=== PATIENT | female | born 1980 | race Caucasian/White ===

== ENCOUNTER 2024-12-16 09:34 | Emergency (ER) | payer MEDICAID, SELFPAY ==
[2024-12-16 09:35] VITALS: BP 138/101; PULSE 115; RESP 18; TEMP 36.8; O2SAT 98; BMI 24.8
--- NOTE | 2024-12-16 09:47 | ED.VIS.GI ---
HPI HPI - GI History of Present Illness Chief Complaint: Flank Pain Detail of Chief Complaint: Left flank pain last night. History of kidney stones. Informant: patient and spouse/S.O. Abdominal Pain/Flank Pain Onset: Today and Yesterday Context: Gradual Onset Timing: Continuous Location: Left Flank Current Severity: Mild Maximum Severity: Moderate Worsened by: Nothing Relieved by: Nothing Nausea/Vomiting/Emesis GI Symptom: Negative for Nausea or Vomiting Diarrhea/Melena/Hematochezia GI Symptom: Positive for Diarrhea Stool Quality: Positive for Loose Severity: Mild Associated Symptoms Associated Symptoms: Positive for Dysuria; Negative for Frequency, Hematuria or Urgency Narrative Narrative: 44-year-old female recently moved to this area has no local physicians. Prior history of kidney stones and urologic stents. Prior and tubal ligation. Patient complaining of left flank pain since last evening. Subjective fever and dysuria. No gross hematuria. Feels like her prior kidney stones. Prior similar symptoms: Yes Recent Illness/Hospitalization: No PFSH PFSH Medical History (Updated 12/16/24 @ 10:[address] Marco A Rivers MD) Kidney stones Allergy/AdvReac Type Severity Reaction Status Date / Time latex Allergy Swelling Verified 12/16/24 09:35 Opioids - Morphine Analogues Allergy Swelling Verified 12/16/24 09:35 povidone-iodine (From Allergy Hives Verified 12/16/24 09:35 Betadine) Social History Smoking Status: Unknown if ever smoked ROS ROS ED ROS Narrative Left flank pain. Diarrhea. Constitutional Constitutional ED: Reports fever(s) and subjective Cardiovascular Cardiovascular: Denies chest pain Respiratory/Chest Respiratory/Chest: Denies cough or dyspnea Gastrointestinal Gastrointestinal: Reports diarrhea; Denies abdominal pain, constipation, melena, nausea or vomiting Genitourinary Genitourinary ED: Reports dysuria; Denies hematuria Musculoskeletal Musculoskeletal: Reports back pain and other Details: Left flank pain. ; Denies arthralgias Integumentary Denies abscess or Abrasions Neurologic Neurologic: Denies headache(s) Psychiatric Psychiatric: Denies anxiety Endocrine Endocrinology: Denies polydipsia Hematologic/Lymphatic Hematologic/Lymphatic: Denies easy bleeding Allergic/Immunologic Allergic/Immunologic ED: Denies mouth swelling, tongue swelling or urticaria EXAM Physical Exam Narrative Exam Narrative: 44-year-old female sitting upright in bed. Vital signs stable afebrile. No acute distress. Significant other with her. H EENT exam pupils round react to light. Moist mucous membranes. Neck nontender no lymphadenopathy. Lungs clear to auscultation bilaterally. Heart tachycardic rate 110 no murmur. Chest wall ribs nontender. Abdomen soft, nontender, nondistended normal bowel sounds without peritoneal signs. No reproducible pain. Back nontender. No CVA tenderness. Well-healed surgical incision from prior thoracic surgery for scoliosis. Moving all 4 extremities. Nontender. Normal strength. Neurologically she is awake alert. Answering questions following commands. No focal motor deficits. Const Vital Signs: 12/16/24 09:35 12/16/24 10:46 Temperature 98.2 F 99.8 F H Temperature Source Oral Oral Pulse Rate 115 H Respiratory Rate 18 Blood Pressure 138/101 H Blood Pressure Mean 113 Pulse Ox 98 Oxygen Delivery Method Room Air Positive well nourished and well developed; Negative for obese, cachectic, contractures or unkempt General Appearance ED: well developed and NAD; Negative for unkempt, cachectic, contractures or pallor Nutritional Appearance: Negative for cachectic or obese HEENT Reports moist mucous membranes normocephalic and atraumatic Eyes PERRL and EOMs intact bilaterally Neck no lymphadenopathy, supple and no JVD Resp normal respiratory effort and clear to auscultation bilaterally Cardio regular rhythm, S1 normal heart sound, S2 normal heart sound and no murmurs; Negative for regular rate Rate: tachycardic GI non-tender, non-distended and no masses Auscultation: normoactive bowel sounds Palpation: soft; Negative for tender, guarding, hernia, mass, pulsatile mass or rebound tenderness present Back/Spine no CVA tenderness Back/Spine Narrative: Well-healed thoracic spine scar from scoliosis and rods. Nontender. General Back: Negative for CVA tenderness Cervical Spine: Negative for cervical spine tenderness Thoracic Spine / Upper Back: Negative for thoracic spinal tenderness Lumbar Spine / Lower Back: Negative for lumbar spinal tenderness Extremity full ROM General Extremety ED: Negative for edema or tenderness General Extremity: Negative for edema Neuro CN's II-XII intact bilaterally and moves all extremities Sensorium / Orientation: alert, oriented to person, oriented to place and oriented to time; Negative for orientation impaired or confused Motor Exam: strength 5/5 throughout Psych mental status grossly normal and thought process normal Appearance: Negative for unkempt Skin no wounds General Skin Exam: Negative for jaundice or pallor Lesions: no lesions Rashes: no rashes Trauma: Negative for abrasion Nails: Negative for discolored MDM MDM MDM Narrative Medical decision making narrative: 44-year-old female left flank pain with a history of prior kidney stones. CAT scan for evaluate for possible kidney stone. Urinalysis to evaluate for possible urinary tract infection. Screening labs. Currently she was offered but did not want a thing for pain or nausea. Repeat exam patient requested something for flank pain should be given IV Toradol. She felt like she was developing a fever I rechecked her oral temperature was 99.8 around 10:45 AM. She also be given p.o. Tylenol. So far her labs are benign. CAT scan shows a left ovarian cyst which will need further evaluation and [facility] referral. History & Record Review Discussion w/independent historian: Patient Additional record(s) reviewed:: No prior records and Other (Patient is from out of state we have no current records on her.) Lab Data Attestation: I reviewed the patient's lab results. Lab results narrative: UA has positive occult blood. Positive ketones. No nitrates. 25-50 white cells. Contaminated with 5-10 epithelial cells. No bacteria. Culture will be sent. Not treated at this time with antibiotics. CBC white count of 13. H&H 12 and 38. Platelets 209. Electrolytes show sodium 131. Gap 15. BUN of 7 creatinine 0.74. Glucose 143. Serum test negative. Labs: Laboratory Results - last 24 hr 12/16/24 12/16/24 09:40 09:55 WBC 13.0 H RBC 4.25 Hgb 12.6 Hct 38.3 MCV 90.1 MCH 29.6 MCHC 32.9 RDW Std Deviation 52.0 H RDW Coeff of Jeb 15.6 H Plt Count 209 MPV 10.7 Immature Gran % (Auto) 0.600 Neut % (Auto) 84.3 H Lymph % (Auto) 5.3 L Holt % (Auto) 4.6 Eos % (Auto) 4.9 Baso % (Auto) 0.3 Absolute Neuts (auto) 10.9 H Absolute Lymphs (auto) 0.69 L Nucleated RBC % 0 Sodium 131 L Potassium 3.4 Chloride 97 L Carbon Dioxide 19.3 L Anion Gap 15 BUN 7 Creatinine 0.74 Estim Creat Clear Calc 71.14 Est GFR (MDRD) Non-Af 103 BUN/Creatinine Ratio 9.2 L Glucose 143 H Calcium 9.4 Serum , Qual NEGATIVE Urine Color Yellow Urine Clarity Sl. Cloudy Urine pH 6.0 Ur Specific [place] 1.015 Urine Protein 30 H Urine Glucose (UA) Normal Urine Ketones 150 A* Urine Occult Blood 150 H Urine Nitrite Negative Urine Bilirubin Negative Urine Urobilinogen Normal Ur Leukocyte Esterase 500 H Urine RBC 0 SEEN Urine WBC 25-50 SEEN Ur Squamous Epith Cells 5-10 SEEN Urine Bacteria 0 SEEN Urine Mucus 0 SEEN Radiography Diagnostic Testing: Clinical Impression(s) from Imaging Studies Abdomen/Pelvis CT 12/16/24 10:15 IMPRESSION: 1. No acute abdominopelvic finding. 2. Several enlarged left ovarian cysts/cystic lesions, incompletely evaluated without IV contrast. Repeat CT pelvis with IV contrast or pelvic ultrasound is recommended for further evaluation if clinically indicated. Reading Location: [facility] Discharge Plan Triage Chief Complaint: Flank Pain ED Provider: Marco A Rivers Dx/Rx/DC Orders Clinical Impression: Acute left flank pain, Cyst of left ovary, History of renal stone Instructions: ED Ovarian Cyst Primary Care Provider: PodChe recio NP Referrals: Liane Guzman MD [Med Staff - Active Staff] - 1 Week PodChe recio NP, [facility] [employer] [facility] [Primary Care Provider] - As Needed Activity Restrictions/Additional Instructions: Motrin and Tylenol for flank pain and any fever. Plenty of fluid and rest. Your CAT scan did not show a kidney stone but it should show left ovarian cysts. Follow-up with [facility] for further evaluation for the left ovarian cyst.. Your urine did not show an infection but showed some white cells. This will be sent for a culture if it shows an infection we will call you and call in an antibiotic. Print Language: Maldivian Disposition Disposition: Home, Self Care
[2024-12-16 10:01] LABS: Absolute Lymphocyte Count 0.69 X10^3/uL (0.83-4.51); Absolute Neutrophil Count 10.9 X10^3/uL (2.0-7.7); Basophil# 0.04 X10^3/uL; Basophil% 0.3 % (0-1); Eosinophil# 0.63 X10^3/uL; Eosinophils% 4.9 % (0-5); Hematocrit 38.3 % (37-47); Hemoglobin 12.6 g/dL (12.0-15.0); Lymphocyte # 0.69 X10^3/ul (0.83-4.51); Lymphocyte % 5.3 % (19-41); Mean Corp Hgb Conc 32.9 g/dL (32-36); Mean Corpuscular Hgb 29.6 pg (27.0-32.0); Mean Corpuscular Volume 90.1 fL (81-99); Mean Platelet Vol. 10.7 fl (6.2-12.0); Monocyte% 4.6 % (0-10); NRBC Flagged by Analyzer 0 % (0-5); Neutrophil # 10.92 X10^3/uL (2.7-7.7); Neutrophil % 84.3 % (47-70); POSITIVE MORPHOLOGY YES; Platelet Count 209 K/mm3 (150-450); RBC Distribution Width CV 15.6 % (11.6-14.6); Red Blood Count 4.25 M/mm3 (4.2-5.4)
[2024-12-16 10:05] LABS: Bacteria 0 SEEN /hpf (None Seen); Mucous, Urine 0 SEEN /hpf (<or=2+); Red Blood Cells-Urine 0 SEEN /hpf (0-5)
[2024-12-16 10:06] LABS: Color, Urine Yellow (Yellow); Glucose, Dipstick Normal (Normal); Leukocyte Esterase-Dipstick 500 /ul (Negative); Nitrite-Dipstick Negative (Negative); Occult Blood-Urine 150 /ul (Negative); Protein-Dipstick 30 mg/dl (Negative); Specific Gravity, Urine 1.015 (1.002-1.030); Urine Bilirubin Dipstick Negative (Negative); Urine Clarity Sl. Cloudy (Clear); Urine Urobilinogen Normal (Normal)
[2024-12-16 10:07] LABS: Ketone-Dipstick 150 mg/dl (Negative)
[2024-12-16 10:09] LABS: Internal QC Validated? YES +Cl - CLEAR BKGD; Pregnancy, Serum, hCG Quali. NEGATIVE Negative; Record Kit Lot#, Serum Preg. 929381
[2024-12-16 10:12] LABS: Squamous Epithelial Cells - UA 5-10 SEEN /hpf (5-10); White Blood Cells 25-50 SEEN /hpf (0-5)
--- NOTE | 2024-12-16 10:15 | CT_ITS ---
PROCEDURE: ABDOMEN/PELVIS WITHOUT CONT 12/16/2024 REASON FOR EXAM: PAIN TECHNIQUE: Abdomen and pelvis CT without intravenous contrast. Noncontrast technique limits evaluation of the abdominal and pelvic viscera. Coronal and Sagittal reconstruction series were provided. One or more dose reduction techniques were used (e.g., Automated exposure control, adjustment of the mA and/or kV according to patient size, use of iterative reconstruction technique). PATIENT PREPARATION: Per protocol ORAL CONTRAST TYPE: None. COMPARISON: None. FINDINGS: Lung bases: Bibasilar atelectasis. The heart is normal in size. Liver: The unopacified liver is normal in size. No biliary ductal dilation. Gallbladder: Probable layering density within the gallbladder. No gallbladder wall thickening or pericholecystic fluid. Spleen: Normal size. Pancreas: Grossly unremarkable. Adrenals: No obvious mass. Kidneys: Several nonobstructing left renal calculi. No hydronephrosis. Bladder: Decompressed with rightward shift of the bladder due to mass effect from the left ovary. Reproductive Organs: Mildly enlarged, fibroid uterus. Several enlarged left ovarian cysts/cystic lesions, incompletely evaluated without IV contrast. Bowel: The stomach is distended. The bowel loops are nondilated. No ascites or pneumoperitoneum. Normal appendix. Lymph nodes: No suspicious lymph node enlargement. Vasculature: The abdominal aorta and IVC contours are normal. Noncontrast technique limits evaluation. Bones: Partially visualized long segment thoracic spinal fixation hardware, with mild rightward curvature of the upper thoracic spine. CT/Abdomen/Pelvis without Cont IMPRESSION: 1. No acute abdominopelvic finding. 2. Several enlarged left ovarian cysts/cystic lesions, incompletely evaluated w ithout IV contrast. Repeat CT pelvis with IV contrast or pelvic ultrasound is recommended for further evaluation if clinical ly indicated. Reading Location: [id number]
[2024-12-16 10:18] LABS: Anion Gap 15 (5-15); BUN 7 mg/dL (4-19); BUN/Creat Ratio 9.2 RATIO (10-20); Calcium,Total 9.4 mg/dL (7.6-11.0); Carbon Dioxide 19.3 mmol/L (21.0-32.0); Chloride 97 mmol/L (98-108); Creatinine, Serum 0.74 mg/dL (0.70-1.20); EST Glomerular Filtration Rate 103 (>60); Estimated Creatinine Clearance 71.14 ml/min (50-250); Glucose 143 mg/dL (70-99); Potassium 3.4 mmol/L (3.3-5.1); Sodium Level 131 mmol/L (133-145)
[2024-12-16 10:22] LABS: Differential Indicated SCAN CRITERIA MET
[2024-12-16 10:46] VITALS: TEMP 37.7
[2024-12-16] MEDS: Acetaminophen 500 MG Tablet 1000 MG PO (10:54)
[2024-12-16] MEDS: Ketorolac 30 MG/ML Syringe IV (10:54)
[2024-12-16 10:57] VITALS: BP 130/98; PULSE 107; RESP 18; TEMP 37.7; O2SAT 99
== END 2024-12-16 10:59 | disposition home or self-care (01) ==
PROVIDERS: Emergency Provider Emergency Medicine; PCP Nurse Practitioner Primary Care; Visit Provider Emergency Medicine
DX: R10.9 Unspecified abdominal pain (principal); N83.202 Unspecified ovarian cyst, left side; R19.7 Diarrhea, unspecified; R30.0 Dysuria; M54.9 Dorsalgia, unspecified; Z87.442 Personal history of urinary calculi
CPT/HCPCS: 74176; 80048; 81001; 84703; 85025; 87086; 87088; 87186; 96374; 99283; A4216

== ENCOUNTER 2024-12-18 10:03 | Observation (INO) | payer MEDICAID, SELFPAY ==
[2024-12-18] VITALS (11 sets, daily range): BP systolic 110–148; BP diastolic 64–97; PULSE 90–114; RESP 16–20; TEMP 36.8–37.6; O2SAT 96–100; BMI 24.2
--- NOTE | 2024-12-18 10:22 | EX.ED.DYSGE1 ---
HPI <RUY Daley - Last Filed: 12/18/24 12:21> History of Present Illness Chief Complaint: General Illness Narrative Narrative: Patient is a 44-year-old female who recently moved to the area, patient was seen on December 16, 2024. Patient was seen here for similar complaints, some flank pain, nausea vomiting diarrhea. Patient did feel improved when she was here upon discharge. Patient received basic laboratory values, CT scan of the abdomen pelvis out contrast. Patient did have some left-sided ovarian cyst however no acute stones. Patient did receive a urine culture which I did check and did presumptively have E. coli. Patient states he is continue to have fevers, some abdominal pain, nausea and vomiting. Here for reevaluation [facility] <RUY Daley - Last Filed: 12/18/24 12:21> [facility] Medical History (Updated 12/18/24 @ 11:[address] Raul Ness MD) Kidney stones Home Medications ?Medication ?Instructions ?Recorded ?Last Taken ?Type NK 12/18/24 Unknown History Allergy/AdvReac Type Severity Reaction Status Date / Time latex Allergy Swelling Verified 12/16/24 09:35 Opioids - Morphine Analogues Allergy Swelling Verified 12/16/24 09:35 povidone-iodine (From Allergy Hives Verified 12/16/24 09:35 Betadine) Social History Smoking Status: Unknown if ever smoked ROS <RUY Daley - Last Filed: 12/18/24 12:21> ROS ED ROS Narrative Constitutional: Negative for weight loss. Positive fever, weakness, chills Eyes: Negative for vision loss, vision change, double vision ENT: Negative for any sore throat, ear pain, congestion Cardiovascular: Negative for any chest pain, tightness, palpitations Respiratory: Negative for any cough, sputum production, hemoptysis, dyspnea, dyspnea on exertion, orthopnea Gastrointestinal: Negative for any constipation, blood in stool, blood in vomit. Positive for abdominal pain, nausea vomiting diarrhea : Negative for any urinary frequency, dysuria, retention, blood in urine. Decreased urine output Muscle skeletal: Negative for any neck pain, back pain Neurological: Negative for any headache, syncope, dizziness Skin: Negative for any rashes, itching, abrasions, lacerations Psychiatric: Negative for any depression, anxiety, stress, suicidal ideation, homicidal ideation Hematologic: Negative for any excessive bruising, easy bleeding EXAM <RUY Daley - Last Filed: 12/18/24 12:21> Physical Exam Narrative Exam Narrative: Vital signs reviewed. On my reevaluation, the patient's oral temp was 100.4. HEET: Head normocephalic atraumatic, TMs clear bilaterally. Posterior pharynx is clear, dry mucous membranes. Nares clear bilaterally. Neck: Supple with no lymphadenopathy or tenderness. No signs of meningismus. Cardiac: Regular rate and rhythm no murmurs gallops or rubs, equal peripheral pulses bilaterally. Respiratory: Lungs clear to auscultation bilaterally. No chest tenderness. Abdomen: Soft, nontender, nondistended. No abdominal bruit or pulsatile masses. No hepatosplenomegaly Extremities: No peripheral edema, no signs of gross trauma or deformity. Active full range of motion of all extremities. Neuro: Cranial nerves II through XII intact, no focal neurological deficits. Skin: Clean dry and intact with no rash, purpura, petechiae, vesicles or pustules. Backs/flank: No CVA tenderness, no midline spinal tenderness, no deformity. Psych: Normal mood and affect. No SI, HI or acute psychosis. Const Vital Signs: 12/18/24 10:04 12/18/24 10:07 12/18/24 10:47 Temperature 99.7 F H 99.7 F H Temperature Source Oral Oral Pulse Rate 114 H 114 H Respiratory Rate 20 H 20 H Respiratory Effort Normal Non-Labored Respiratory Pattern Irregular Blood Pressure 115/84 H 115/84 H Blood Pressure Mean 94 94 Pulse Ox 100 100 Oxygen Delivery Method Room Air Room Air 12/18/24 11:07 Temperature 99.4 F H Temperature Source Oral Pulse Rate 102 H Respiratory Rate 16 Respiratory Effort Respiratory Pattern Blood Pressure 110/64 Blood Pressure Mean 79 Pulse Ox 98 Oxygen Delivery Method Room Air Positive well nourished and well developed General Appearance ED: well developed <Dr. Raul Ness MD - Last Filed: 12/18/24 12:35> Physical Exam Const Vital Signs: 12/18/24 10:04 12/18/24 10:07 12/18/24 10:47 Temperature 99.7 F H 99.7 F H Temperature Source Oral Oral Pulse Rate 114 H 114 H Respiratory Rate 20 H 20 H Respiratory Effort Normal Non-Labored Respiratory Pattern Irregular Blood Pressure 115/84 H 115/84 H Blood Pressure Mean 94 94 Pulse Ox 100 100 Oxygen Delivery Method Room Air Room Air 12/18/24 11:07 Temperature 99.4 F H Temperature Source Oral Pulse Rate 102 H Respiratory Rate 16 Respiratory Effort Respiratory Pattern Blood Pressure 110/64 Blood Pressure Mean 79 Pulse Ox 98 Oxygen Delivery Method Room Air [facility] <RUY Daley - Last Filed: 12/18/24 12:21> [facility] Lab Data Labs: Laboratory Results - last 24 hr 12/18/24 10:40 WBC 16.9 H RBC 4.31 Hgb 12.8 Hct 38.0 MCV 88.2 MCH 29.7 MCHC 33.7 RDW Std Deviation 51.9 H RDW Coeff of Jeb 16.0 H Plt Count 218 MPV 10.9 Immature Gran % (Auto) 0.500 Neut % (Auto) 82.4 H Lymph % (Auto) 6.8 L [place] % (Auto) 9.9 Eos % (Auto) 0.1 Baso % (Auto) 0.3 Absolute Neuts (auto) 13.9 H Absolute Lymphs (auto) 1.15 Nucleated RBC % 0 Diff Path Review May foll Platelet Estimate A Polychromasia 1+ Sodium 133 Potassium 4.4 Chloride 99 Carbon Dioxide 19.7 L Anion Gap 14 BUN 7 Creatinine 0.72 Estim Creat Clear Calc 73.11 Est GFR (MDRD) Non-Af 108 BUN/Creatinine Ratio 9.7 L Glucose 114 H Lactic Acid 1.7 Calcium 9.5 Total Bilirubin 0.29 Direct Bilirubin < 0.08 AST 40 H ALT 21 Alkaline Phosphatase 105 H Total Protein 7.7 Albumin 3.7 Globulin 4.0 Lipase 14 Urine Color Yellow Urine Clarity Sl. Cloudy Urine pH 7.0 Ur Specific [place] 1.010 Urine Protein 30 H Urine Glucose (UA) Normal Urine Ketones Negative Urine Occult Blood 150 H Urine Nitrite Negative Urine Bilirubin Negative Urine Urobilinogen 1 H Ur Leukocyte Esterase 500 H Urine RBC 0-5 SEEN Urine WBC 25-50 SEEN Ur Squamous Epith Cells 0-5 SEEN Urine Bacteria 2+ Urine Mucus 0 SEEN Treatment and Re-Evaluation :: Differential diagnosis includes however is not limited to: Obstructive uropathy, pelvic abscess, dehydration, leukocytosis, electrolyte abnormality, pyelonephritis, UTI Patient does appear that she does not feel well. Patient did have a oral temp of 100.4 here on my examination. I did look at the patient's past visit on December 16, 2024. Patient did have some bacteria in the urine that was sent for culture which did show E. coli. Patient had a white blood cell count of 13, CT scan of the abdomen pelvis without contrast showed ovarian cyst/lesions, no obstructing uropathy. Patient will receive basic laboratory values including a lactic acid, urinalysis. Patient received IV Toradol, Zofran as well as IV Rocephin. Patient's CBC shows a leukocytosis with a white blood count of 16.9. This is elevated from a couple days ago that was 13. Patient's chemistries were unremarkable, lipase was negative. Patient's COVID-19 influenza was unremarkable. Patient's urinalysis does show 2+ bacteria 25-50 white blood cells, 500 leukocyte Estrace, occult blood 150. Patient urine sent for culture. Patient was started IV Rocephin which is sensitive to the culture from the previous. Patient is sweating on my reevaluation, this is likely from her fever breaking. Patient be admitted to the hospital. All questions answered, stable for discharge. <Dr. Raul Ness MD - Last Filed: 12/18/24 12:35> [facility] Narrative Medical decision making narrative: I have personally performed a face to face assessment of the patient and have reviewed the DORIS Note. I performed a substantive portion of the visit including all aspects of the following. My coffey findings include: History is remarkable for diarrhea, nausea, lack of appetite, dysuria and frequency. Symptoms started Tuesday. She was recently seen by Dr. Rivers on December 16. She was noted to have pyuria without bacteria. Urine culture was sent. Urine culture is positive for presumptive E. coli. Patient states she has no appetite. She states her abdomen hurts because she has not eaten in several days. She does endorse left flank pain. Exam is vitals are marked for tachycardia and elevated temperature to 99.7. She appears ill and pale. HEENT is remarkable dry mucosa. Lungs are clear to auscultation. Heart is rapid and regular. Abdomen is soft with question of some mild tenderness. There is no guarding or peritoneal findings. She does have left CVA tenderness noted. There are no dermatologic lesions noted. There is no evidence of trauma. Alert orient x 3. Moves all extremities. Medical Decision Making differential diagnosis would include pyelonephritis, history is not consistent with obstructing stone, she was noted to have ovarian cyst and probably the cause of her abdominal pain. Patient was treated with ketorolac for her pain, Zofran for her nausea and ceftriaxone for presumed E. coli noted on urine culture. Patient does not appear well. Most likely she will require admission. Other additions or changes: With patient having nausea and vomiting and unable to keep fluids down and she was admitted. Lab Data Labs: Laboratory Results - last 24 hr 12/18/24 10:40 WBC 16.9 H RBC 4.31 Hgb 12.8 Hct 38.0 MCV 88.2 MCH 29.7 MCHC 33.7 RDW Std Deviation 51.9 H RDW Coeff of Jeb 16.0 H Plt Count 218 MPV 10.9 Immature Gran % (Auto) 0.500 Neut % (Auto) 82.4 H Lymph % (Auto) 6.8 L [place] % (Auto) 9.9 Eos % (Auto) 0.1 Baso % (Auto) 0.3 Absolute Neuts (auto) 13.9 H Absolute Lymphs (auto) 1.15 Nucleated RBC % 0 Diff Path Review May foll Platelet Estimate A Polychromasia 1+ Sodium 133 Potassium 4.4 Chloride 99 Carbon Dioxide 19.7 L Anion Gap 14 BUN 7 Creatinine 0.72 Estim Creat Clear Calc 73.11 Est GFR (MDRD) Non-Af 108 BUN/Creatinine Ratio 9.7 L Glucose 114 H Lactic Acid 1.7 Calcium 9.5 Total Bilirubin 0.29 Direct Bilirubin < 0.08 AST 40 H ALT 21 Alkaline Phosphatase 105 H Total Protein 7.7 Albumin 3.7 Globulin 4.0 Lipase 14 Urine Color Yellow Urine Clarity Sl. Cloudy Urine pH 7.0 Ur Specific [place] 1.010 Urine Protein 30 H Urine Glucose (UA) Normal Urine Ketones Negative Urine Occult Blood 150 H Urine Nitrite Negative Urine Bilirubin Negative Urine Urobilinogen 1 H Ur Leukocyte Esterase 500 H Urine RBC 0-5 SEEN Urine WBC 25-50 SEEN Ur Squamous Epith Cells 0-5 SEEN Urine Bacteria 2+ Urine Mucus 0 SEEN Management Discussion w/another healthcare provider: Hospitalist (Spoke with hospitalist. Full admit MedSurg hospitalist made aware of recent presentation to ER, laboratory results and reason for admission) Discharge Plan Triage Chief Complaint: General Illness ED Midlevel Provider: Blake Anders ED Provider: Raul Ness Dx/Rx/DC Orders Clinical Impression: Pyelonephritis of left kidney, Cyst of left ovary, Sinus tachycardia, Nausea, vomiting and diarrhea Prescriptions: No Action NK Primary Care Provider: Che Adkins NP Referrals: Che Adkins NP, [facility] [Primary Care Provider] - Print Language: Setswana Disposition Disposition: Acute Care Hospital [facility]
[2024-12-18] MEDS: Ondansetron 4 MG/2 ML Vial IV ×2 (10:38→19:29)
[2024-12-18] MEDS: Ketorolac 15 MG/ML Vial IV (10:38)
[2024-12-18] MEDS: 0.9% Normal Saline (1000mL) 1,000 ML 999 ML IV (10:38)
[2024-12-18] MEDS: Ceftriaxone 1 GM/50 ML BAG IV (10:45)
[2024-12-18 10:52] LABS: Mucous, Urine 0 SEEN /hpf (<or=2+)
[2024-12-18 10:58] LABS: Absolute Lymphocyte Count 1.15 X10^3/uL (0.83-4.51); Absolute Neutrophil Count 13.9 X10^3/uL (2.0-7.7); Basophil# 0.05 X10^3/uL; Basophil% 0.3 % (0-1); Eosinophil# 0.01 X10^3/uL; Eosinophils% 0.1 % (0-5); Hemoglobin 12.8 g/dL (12.0-15.0); Lymphocyte # 1.15 X10^3/ul (0.83-4.51); Lymphocyte % 6.8 % (19-41); Mean Corp Hgb Conc 33.7 g/dL (32-36); Mean Corpuscular Hgb 29.7 pg (27.0-32.0); Mean Corpuscular Volume 88.2 fL (81-99); Mean Platelet Vol. 10.9 fl (6.2-12.0); Monocyte# 1.67 X10^3/uL; Monocyte% 9.9 % (0-10); NRBC Flagged by Analyzer 0 % (0-5); Neutrophil # 13.91 X10^3/uL (2.7-7.7); Neutrophil % 82.4 % (47-70); POSITIVE DIFFERENTIAL YES; Platelet Count 218 K/mm3 (150-450); RBC Distribution Width SD 51.9 fl (35.1-43.9); Red Blood Count 4.31 M/mm3 (4.2-5.4); White Blood Count 16.9 K/mm3 (4.4-11.0)
[2024-12-18 11:00] LABS: Color, Urine Yellow (Yellow); Glucose, Dipstick Normal (Normal); Ketone-Dipstick Negative (Negative); Leukocyte Esterase-Dipstick 500 /ul (Negative); Nitrite-Dipstick Negative (Negative); Occult Blood-Urine 150 /ul (Negative); Protein-Dipstick 30 mg/dl (Negative); Urine Bilirubin Dipstick Negative (Negative); Urine Clarity Sl. Cloudy (Clear); Urine Urobilinogen 1 mg/dl (Normal)
[2024-12-18 11:03] LABS: Differential Indicated SCAN CRITERIA MET
[2024-12-18 11:11] LABS: Bacteria 2+ /hpf (None Seen); Red Blood Cells-Urine 0-5 SEEN /hpf (0-5); Squamous Epithelial Cells - UA 0-5 SEEN /hpf (5-10); White Blood Cells 25-50 SEEN /hpf (0-5)
[2024-12-18] MEDS: Acetaminophen 500 MG Tablet 1000 MG PO (11:21)
[2024-12-18 11:47] LABS: Platelet Estimate A (ADEQ); Polychromasia 1+
[2024-12-18 11:58] LABS: Lactic Acid 1.7 mmol/L (0.0-2.0)
[2024-12-18 12:00] LABS: AST(SGOT) 40 U/L (<=31); Alanine Aminotransfer ALT/SGPT 21 U/L (<=34); Albumin, Serum 3.7 g/dL (3.5-5.0); Alkaline Phosphatase 105 U/L (35-104); Anion Gap 14 (5-15); BUN 7 mg/dL (4-19); BUN/Creat Ratio 9.7 RATIO (10-20); Bilirubin, Direct < 0.08 mg/dL (0.00-0.30); Calcium,Total 9.5 mg/dL (7.6-11.0); Carbon Dioxide 19.7 mmol/L (21.0-32.0); Chloride 99 mmol/L (98-108); Creatinine, Serum 0.72 mg/dL (0.70-1.20); EST Glomerular Filtration Rate 108 (>60); Estimated Creatinine Clearance 73.11 ml/min (50-250); Glucose 114 mg/dL (70-99); Lipase 14 U/L (13-75); Potassium 4.4 mmol/L (3.3-5.1); Protein, Total 7.7 g/dL (5.9-8.4); Sodium Level 133 mmol/L (133-145); Total Bilirubin 0.29 mg/dL (0.00-1.30)
--- NOTE | 2024-12-18 12:08 | PCM.HP.STD ---
HPI - General General Date of Admission: 12/18/24 Date of Service: 12/18/24 Chief Complaint: Left flank pain HPI Narrative MOHSEN MOSS, is a 44 F in relatively good health with no chronic medical comorbidities who presented with left flank pain. Per patient she was in her usual state of health 4 days prior to her admission when she developed left flank pain as well as subjective fever and chills. She was seen in the emergency department 2 days prior to admission and discharged home. Patient symptoms did not improve came back to the ED distad with significant left flank pain with associated subjective fever and chills. She had nausea vomiting as well as diarrhea. Workup did reveal acute pyelonephritis antibiotics initiated per protocol admitted to regular nursing floor for further management [facility] Medical History (Updated 12/18/24 @ 11:[address] Raul Ness MD) Kidney stones Home Medications ?Medication ?Instructions ?Recorded ?Last Taken ?Type NK 12/18/24 Unknown History Allergy/AdvReac Type Severity Reaction Status Date / Time latex Allergy Swelling Verified 12/16/24 09:35 Opioids - Morphine Analogues Allergy Swelling Verified 12/16/24 09:35 povidone-iodine (From Allergy Hives Verified 12/16/24 09:35 Betadine) Social History Smoking Status: Unknown if ever smoked ROS ROS Narrative GENERAL: denies fever, chills, night sweats, weight loss, anorexia HEENT: denies headache, sinus congestion, or drainage, dysphagia RESPIRATORY: denies cough, sputum production, shortness of breath, dyspnea on exertion CARDIAC: denies chest pain, palpitations, orthopnea, PND GASTROINTESTINAL: , nausea, vomiting, melena, GENITOURINARY: dysuria, left flank pain EXTREMITY: denies swelling MUSCULOSKELETAL: denies current joint pain or tenderness NEUROLOGIC: denies focal numbness, weakness, tingling HEMATOLOGIC: denies easy bruising and/or hemorrhage INTEGUMENT: denies rashes PSYCHIATRIC: denies suicidal or homicidal ideation Vital Signs Vital Signs Vital Signs: 12/18/24 10:04 12/18/24 10:07 12/18/24 10:47 Temperature 99.7 F H 99.7 F H Temperature Source Oral Oral Pulse Rate 114 H 114 H Respiratory Rate 20 H 20 H Respiratory Effort Normal Non-Labored Respiratory Pattern Irregular Blood Pressure 115/84 H 115/84 H Blood Pressure Mean 94 94 Pulse Ox 100 100 Oxygen Delivery Method Room Air Room Air 12/18/24 11:07 Temperature 99.4 F H Temperature Source Oral Pulse Rate 102 H Respiratory Rate 16 Respiratory Effort Respiratory Pattern Blood Pressure 110/64 Blood Pressure Mean 79 Pulse Ox 98 Oxygen Delivery Method Room Air Weight Weight: 50.712 kg Body Mass Index (BMI) 24.2 Physical Exam Narrative GENERAL: cooperative HEENT: Atraumatic; normocephalic EYES; Anicteric, Normal Conjunctiva NECK; supple, normal thyroid, RESPIRATORY: Diminished to auscultation CARDIOVASCULAR: Regular S1 S2, GI: soft, normoactive bowel sounds, : Renal angle tenderness; EXTREMITIES: No edema, no clubbing, MUSCULOSKELETAL: no muscle wasting NEURO: Awake; no lateralizing signs. SKIN: No Rash PSYCH; Flat affect Results Lab / Micro Data 12/18/24 10:40 12/18/24 10:40 Labs: Laboratory Results - last 24 hr 12/18/24 10:40: WBC 16.9 H, RBC 4.31, Hgb 12.8, Hct 38.0, MCV 88.2, MCH 29.7, MCHC 33.7, RDW Std Deviation 51.9 H, RDW Coeff of Jeb 16.0 H, Plt Count 218, MPV 10.9, Immature Gran % (Auto) 0.500, Neut % (Auto) 82.4 H, Lymph % (Auto) 6.8 L, Person % (Auto) 9.9, Eos % (Auto) 0.1, Baso % (Auto) 0.3, Absolute Neuts (auto) 13.9 H, Absolute Lymphs (auto) 1.15, Nucleated RBC % 0, Diff Path Review January, Platelet Estimate A, Polychromasia 1+, Sodium 133, Potassium 4.4, Chloride 99, Carbon Dioxide 19.7 L, Anion Gap 14, BUN 7, Creatinine 0.72, Estim Creat Clear Calc 73.11, Est GFR (MDRD) Non-Af 108, BUN/Creatinine Ratio 9.7 L, Glucose 114 H, Lactic Acid 1.7, Calcium 9.5, Total Bilirubin 0.29, Direct Bilirubin < 0.08, AST 40 H, ALT 21, Alkaline Phosphatase 105 H, Total Protein 7.7, Albumin 3.7, Globulin 4.0, Lipase 14, Urine Color Yellow, Urine Clarity Sl. Cloudy, Urine pH 7.0, Ur Specific [place] 1.010, Urine Protein 30 H, Urine Glucose (UA) Normal, Urine Ketones Negative, Urine Occult Blood 150 H, Urine Nitrite Negative, Urine Bilirubin Negative, Urine Urobilinogen 1 H, Ur Leukocyte Esterase 500 H, Urine RBC 0-5 SEEN, Urine WBC 25-50 SEEN, Ur Squamous Epith Cells 0-5 SEEN, Urine Bacteria 2+, Urine Mucus 0 SEEN Micro: Microbiology 12/18/24 10:40 Mucosa - Nose SARS-CoV-2, Influenza & RSV (PCR) - Final Assessment & Plan Assessment/Plan (1) Pyelonephritis of left kidney: PLAN: Plan Patient is a 44-year-old female presenting with left flank pain 1. Sepsis syndrome next without endorgan dysfunction ? Secondary to acute pyelonephritis treatment initiated from the ED with IV fluid resuscitation, broad-spectrum antibiotic therapy as well as IV fluids. Initial lactic acid levels came back at 1.7 2. Acute pyelonephritis ? Patient did fail outpatient treatment cultures previously obtained came back positive for E. coli sensitivities reviewed. Patient started on ceftriaxone admitted to regular nursing floor for symptom management 3. Acute gastroenteritis ? Suspected to be viral gastroenteritis plan is to treat symptomatically 4. DVT prophylaxis ? Low risk to encourage ambulation Time spent in the patient's overall evaluation,decision-making process, review of diagnostic data, adjustment of management, discussion with other providers, nursing nursing and ancillary staff involved in patient's care documentation, 55 Minutes Charges/Coding Visit Charges Inpatient E&M: 93309 Init Hosp L2
--- NOTE | 2024-12-18 14:09 | CASEMGMT ---
Care Management Face to Face with patient for initial transition planning/care coordination assessment in the ED. This justowriter operator introduced self and role at [facility]. Patient alert and oriented. Patient willing to participate in assessment and is able to answer all questions appropriately. Care providers, pharmacy, and demographics verified. Admitting Diagnosis: Pyelonephritis of left kidney Other diagnosis history: kidney stones PCP: Che Adkins PRODUCT SAFETY PROFESSIONAL Specialists: none [facility]erred [facility]acy: [facility] Insurance: [employer] Prescription Benefit: yes Living Will/HPOA: none and denies needing information LNOK: mother, Ghazala. Living Arrangements: lives with significant other, Jose, in a trailer with 3 steps to enter. Independent at baseline with all ADLs/IADLs Transportation: patient drives DME: none HHC: none SNF/Rehab: none Community Resources: none Behavioral Health History: denies Patient goals: Patient wishes to discharge home, denies need for home health care at this time. Patient denies any further needs or concerns at this time. Disposition Plan: admission to acute; RN CM/SW to follow for discharge planning needs that may arise. Autumn Godoy, ATOMIC PHYSICS PROFESSOR, BUSINESS DEVELOPMENT ASSISTANT
[2024-12-18] MEDS: Lactated Ringers 1,000 ML 150 ML IV ×2 (15:26→21:40)
[2024-12-18] MEDS: Acetaminophen 325 MG Tablet 650 MG PO (19:30)
[2024-12-19] MEDS: Acetaminophen 325 MG Tablet 650 MG PO ×2 (03:00→20:14)
[2024-12-19] MEDS: Ondansetron 4 MG/2 ML Vial IV ×4 (03:00→17:34)
[2024-12-19 03:10] VITALS: BP 117/78; PULSE 99; RESP 16; TEMP 37.6; O2SAT 100
[2024-12-19] MEDS: Lactated Ringers 1,000 ML 150 ML IV (04:16)
[2024-12-19 06:00] VITALS: BMI 25.1
[2024-12-19 07:19] LABS: Absolute Lymphocyte Count 1.24 X10^3/uL (0.83-4.51); Absolute Neutrophil Count 8.8 X10^3/uL (2.0-7.7); Basophil# 0.02 X10^3/uL; Basophil% 0.2 % (0-1); Eosinophil# 0.06 X10^3/uL; Eosinophils% 0.5 % (0-5); Hematocrit 28.4 % (37-47); Hemoglobin 9.7 g/dL (12.0-15.0); Lymphocyte # 1.24 X10^3/ul (0.83-4.51); Lymphocyte % 10.7 % (19-41); Mean Corp Hgb Conc 34.2 g/dL (32-36); Mean Corpuscular Hgb 29.6 pg (27.0-32.0); Mean Corpuscular Volume 86.6 fL (81-99); Mean Platelet Vol. 10.7 fl (6.2-12.0); Monocyte# 1.46 X10^3/uL; Monocyte% 12.6 % (0-10); NRBC Flagged by Analyzer 0 % (0-5); Neutrophil # 8.78 X10^3/uL (2.7-7.7); Neutrophil % 75.5 % (47-70); Platelet Count 232 K/mm3 (150-450); RBC Distribution Width CV 16.1 % (11.6-14.6); Red Blood Count 3.28 M/mm3 (4.2-5.4); White Blood Count 11.6 K/mm3 (4.4-11.0)
--- NOTE | 2024-12-19 07:44 | PN.HOSP_ITS ---
Reason for Visit Reason for Visit: Diagnoses Tubulo-interstitial nephritis, not specified as acute or chronic (12/18/24) Subjective Subjective Patient admitted with left pyelonephritis started on antibiotics per protocol admitted to regular nursing floor for further management. Seen this a.m. patient reports being able to hold food down with no nausea and vomiting. She still continues to spike fevers Objective Data Objective Data Vital Signs: Vital Signs Temp Pulse Resp BP Pulse Ox O2 Del Method 99.7 F H 99 16 117/78 100 Room Air 12/19/24 03:10 12/19/24 03:10 12/19/24 03:10 12/19/24 03:10 12/19/24 03:10 12/19/24 03:10 Oxygen Delivery Method Room Air Weight: 52.617 kg Body Mass Index (BMI) 25.1 Intake & Output: Intake and Output for Last 24 Hours 12/17/24 12/18/24 12/19/24 23:59 23:59 23:59 Intake Total 2335 / 2335 990 / 990 Balance 2335 / 2335 990 / 990 Medical Nutrition Assessment Dietitian: Malnutrition Criteria Met Start: 12/18/24 17:28 Freq: Status: Active Protocol: Document 12/18/24 17:30 RMA (Rec: 12/18/24 17:30 RMA [email or web address]) Nutrition Malnutrition Evidence of Yes Malnutrition Exists Malnutrition (severe Acute Illness/Injury ): Evidenced By Suboptimal Energy Intake (Severe),Weight Loss (Severe) Clinical Problem Acute Disease or Injury Related Malnutrition Etiology severe protein-calorie malnutrition in the context of acute illness related to inadequate oral intake and altered GI function; N/V/D Signs/Symptoms as evidenced by ~7% unintentional weight loss x 1 week and PO meeting less than 50% estimated nutrition needs x 1 week Status Active Problem Recommendation Dietitian Will continue regular diet and encourage PO as Recommendations/ tolerated. Changes Will d/c ensure plus HP with medpass. Will order 240mL vanilla ensure plus HP w/ breakfast and dinner tray. Monitor weight and PO as established; adjust ONS as needed. Lab / Micro Data 12/19/24 06:45 12/19/24 06:45 Labs: Laboratory Results - last 24 hr 12/18/24 10:40: WBC 16.9 H, RBC 4.31, Hgb 12.8, Hct 38.0, MCV 88.2, MCH 29.7, MCHC 33.7, RDW Std Deviation 51.9 H, RDW Coeff of Jeb 16.0 H, Plt Count 218, MPV 10.9, Immature Gran % (Auto) 0.500, Neut % (Auto) 82.4 H, Lymph % (Auto) 6.8 L, [place] % (Auto) 9.9, Eos % (Auto) 0.1, Baso % (Auto) 0.3, Absolute Neuts (auto) 13.9 H, Absolute Lymphs (auto) 1.15, Nucleated RBC % 0, Diff Path Review January, Platelet Estimate A, Polychromasia 1+, Sodium 133, Potassium 4.4, Chloride 99, Carbon Dioxide 19.7 L, Anion Gap 14, BUN 7, Creatinine 0.72, Estim Creat Clear Calc 73.11, Est GFR (MDRD) Non-Af 108, BUN/Creatinine Ratio 9.7 L, Glucose 114 H, Lactic Acid 1.7, Calcium 9.5, Total Bilirubin 0.29, Direct Bilirubin < 0.08, AST 40 H, ALT 21, Alkaline Phosphatase 105 H, Total Protein 7.7, Albumin 3.7, Globulin 4.0, Lipase 14, Urine Color Yellow, Urine Clarity Sl. Cloudy, Urine pH 7.0, Ur Specific [place] 1.010, Urine Protein 30 H, Urine Glucose (UA) Normal, Urine Ketones Negative, Urine Occult Blood 150 H, Urine Nitrite Negative, Urine Bilirubin Negative, Urine Urobilinogen 1 H, Ur Leukocyte Esterase 500 H, Urine RBC 0-5 SEEN, Urine WBC 25-50 SEEN, Ur Squamous Epith Cells 0-5 SEEN, Urine Bacteria 2+, Urine Mucus 0 SEEN 12/19/24 06:45: WBC 11.6 H, RBC 3.28 L, Hgb 9.7 L, Hct 28.4 L, MCV 86.6, MCH 29.6, MCHC 34.2, RDW Std Deviation 51.0 H, RDW Coeff of Jeb 16.1 H, Plt Count 232, MPV 10.7, Immature Gran % (Auto) 0.500, Neut % (Auto) 75.5 H, Lymph % (Auto) 10.7 L, [place] % (Auto) 12.6 H, Eos % (Auto) 0.5, Baso % (Auto) 0.2, A bsolute Neuts (auto) 8.8 H, Absolute Lymphs (auto) 1.24, Nucleated RBC % 0 Micro: Microbiology 12/18/24 10:40 Mucosa - Nose SARS-CoV-2, Influenza & RSV (PCR) - Final Physical Exam Narrative GENERAL: cooperative HEENT: Atraumatic; normocephalic EYES; Anicteric, Normal Conjunctiva NECK; supple, normal thyroid, RESPIRATORY: Diminished to auscultation CARDIOVASCULAR: Regular S1 S2, GI: soft, normoactive bowel sounds, : Renal angle tenderness; EXTREMITIES: No edema, no clubbing, MUSCULOSKELETAL: no muscle wasting NEURO: Awake; no lateralizing signs. SKIN: No Rash PSYCH; Flat affect Assessment & Plan Assessment/Plan (1) Pyelonephritis of left kidney: PLAN: Plan Patient is a 44-year-old female presenting with left flank pain 1. Sepsis syndrome next without endorgan dysfunction ? Secondary to acute pyelonephritis treatment initiated from the ED with IV fluid resuscitation, broad-spectrum antibiotic therapy as well as IV fluids. Initial lactic acid levels came back at 1.7 2. Acute pyelonephritis with E. coli ? Patient did fail outpatient treatment cultures previously obtained came back positive for E. coli sensitivities reviewed. Patient started on ceftriaxone admitted to regular nursing floor for symptom management ?; patient continues to spike fevers we will continue with current antibiotic treatment regimen 3. Acute gastroenteritis ? Suspected to be viral gastroenteritis plan is to treat symptomatically 4. Anemia ? Secondary to chronic disorder monitoring H&H and transfuse if patient becomes symptomatic or hemoglobin falls below 7. Also ordered iron studies as well as B12 levels 5. Hypokalemia ? Corrected per protocol repeat labs ordered in a.m. for subsequent eval 6. Hypomagnesemia ? Corrected per protocol repeat labs ordered in a.m. for subsequent monitoring 7. DVT prophylaxis ? Low risk to encourage ambulation Charges/Coding Visit Charges Inpatient E&M: 18045 [facility] Hosp L3
[2024-12-19 07:53] LABS: Magnesium 1.5 mg/dL (1.5-2.2); Phosphorus 2.2 mg/dL (2.7-4.5)
[2024-12-19 07:54] LABS: Anion Gap 9 (5-15); BUN 6 mg/dL (4-19); BUN/Creat Ratio 11.5 RATIO (10-20); Calcium,Total 8.4 mg/dL (7.6-11.0); Carbon Dioxide 21.9 mmol/L (21.0-32.0); Chloride 107 mmol/L (98-108); Creatinine, Serum 0.49 mg/dL (0.70-1.20); EST Glomerular Filtration Rate 120 (>60); Estimated Creatinine Clearance 107.43 ml/min (50-250); Glucose 98 mg/dL (70-99); Potassium 3.2 mmol/L (3.3-5.1); Sodium Level 137 mmol/L (133-145)
[2024-12-19 07:57] VITALS: O2SAT 95
[2024-12-19 09:00] VITALS: BP 122/75; PULSE 96; RESP 16; TEMP 37.4; O2SAT 98
[2024-12-19] MEDS: Pantoprazole Sodium 40 MG Tablet PO (10:23)
[2024-12-19] MEDS: Ceftriaxone 1 GM/50 ML BAG IV (10:23)
[2024-12-19] MEDS: Na Biphos/Potassium Phosphate PACKET 1 PACKET PO ×2 (10:33→20:14)
[2024-12-19 12:24] LABS: Ferritin 109 ng/mL (22-378); Iron < 6 ug/dL (50-170); Iron Binding Capacity,Unsat 171 ug/dL (228-428); Vitamin B12 > 4000 pg/mL (180-914)
[2024-12-19 15:00] VITALS: BP 117/77; PULSE 94; RESP 16; TEMP 37.5; O2SAT 99
--- NOTE | 2024-12-19 15:27 | CHAPLAIN ---
Type of Pastoral Visit _x__ Initial Visit ___ Follow-up Visit ___ On-call Visit ___ General Patient Visit ___ Spiritual Assessment ___ Family Conference ___ Bereavement ___ Rapid Response ___ Code Blue ___ Other (describe below) Pastoral Care Referral From _x__ Patient ___ Family ___ Nurse ___ Physician ___ Resident Services Coordinator ___ Account Manager Employee Benefits ___ Other (describe below) Sacrament/Intervention _x__ Active listening ___ Anointing ___ Orthodoxy ___ Bereavement ___ Communion ___ Anabela exploration ___ _x__ Life review _x__ Prayer ___ Reconciliation ___ Sacrament of Sick ___ Supportive presence ___ Wedding ___ Other (describe below) Pastoral Comments patient is pleasant and welcoming; pt gives review of her health issue; pt has moved back to this area and is living with some family; pt is appreciative of the hospital care and welcomes a prayer for support today; pt states that she has no other worries at this time
[2024-12-19 20:19] VITALS: BP 129/89; PULSE 93; RESP 16; TEMP 36.9; O2SAT 100
[2024-12-20] MEDS: Ondansetron 4 MG/2 ML Vial IV ×3 (00:16→11:23)
[2024-12-20] MEDS: 0.9% Saline Lock 10 ML Syringe IV ×4 (05:50→13:36)
[2024-12-20 05:54] VITALS: BMI 26.5
[2024-12-20] MEDS: Acetaminophen 325 MG Tablet 650 MG PO (05:56)
[2024-12-20 06:22] LABS: Absolute Lymphocyte Count 1.83 X10^3/uL (0.83-4.51); Basophil# 0.04 X10^3/uL; Basophil% 0.5 % (0-1); Eosinophil# 0.11 X10^3/uL; Eosinophils% 1.4 % (0-5); Hematocrit 29.5 % (37-47); Lymphocyte # 1.83 X10^3/ul (0.83-4.51); Lymphocyte % 23.6 % (19-41); Mean Corp Hgb Conc 33.9 g/dL (32-36); Mean Corpuscular Hgb 29.9 pg (27.0-32.0); Mean Corpuscular Volume 88.1 fL (81-99); Mean Platelet Vol. 10.6 fl (6.2-12.0); Monocyte% 10.3 % (0-10); NRBC Flagged by Analyzer 0 % (0-5); Neutrophil # 4.95 X10^3/uL (2.7-7.7); Neutrophil % 63.8 % (47-70); Platelet Count 280 K/mm3 (150-450); RBC Distribution Width CV 16.3 % (11.6-14.6); RBC Distribution Width SD 53.1 fl (35.1-43.9); Red Blood Count 3.35 M/mm3 (4.2-5.4); White Blood Count 7.8 K/mm3 (4.4-11.0)
[2024-12-20 06:37] LABS: Anion Gap 11 (5-15); BUN 7 mg/dL (4-19); BUN/Creat Ratio 13.4 RATIO (10-20); Carbon Dioxide 23.9 mmol/L (21.0-32.0); Chloride 108 mmol/L (98-108); Creatinine, Serum 0.55 mg/dL (0.70-1.20); EST Glomerular Filtration Rate 117 (>60); Estimated Creatinine Clearance 104.21 ml/min (50-250); Glucose 109 mg/dL (70-99); Potassium 3.2 mmol/L (3.3-5.1); Sodium Level 142 mmol/L (133-145)
[2024-12-20 06:53] VITALS: O2SAT 96
--- NOTE | 2024-12-20 07:30 | PCM.DC.SUM ---
Providers Date of Admission: 12/18/24 Date of Discharge: 12/20/24 Primary Care Physician: Che Adkins, CERTIFIED REGISTERED NURSE ANESTHETIST-C Reason For Visit: ACUTE PYELO Diagnosis Discharge Diagnosis (1) Pyelonephritis of left kidney: Status: Acute Code(s): N12 - Tubulo-interstitial nephritis, not specified as acute or chronic Plan Patient is a 44-year-old female presenting with left flank pain 1. Sepsis syndrome next without endorgan dysfunction ? Secondary to acute pyelonephritis treatment initiated from the ED with IV fluid resuscitation, broad-spectrum antibiotic therapy as well as IV fluids. Initial lactic acid levels came back at 1.7 2. Acute pyelonephritis with E. coli ? Patient did fail outpatient treatment cultures previously obtained came back positive for E. coli sensitivities reviewed. Patient started on ceftriaxone admitted to regular nursing floor for symptom management ?; patient continues to spike fevers we will continue with current antibiotic treatment regimen ? Plan is for patient to be discharged home on ciprofloxacin 3. Acute gastroenteritis ? Suspected to be viral gastroenteritis plan is to treat symptomatically 4. Anemia ? Secondary to chronic disorder monitoring H&H and transfuse if patient becomes symptomatic or hemoglobin falls below 7. Also ordered iron studies as well as B12 levels ? 12/20/2024; patient iron studies did reveal significant iron deficiency anemia patient did receive parenteral iron and prescription written for p.o. iron on discharge. Plan is for patient to follow-up with GI as outpatient for possible endoscopic evaluation. My suspicion is that patient anemia is nutritional 5. Hypokalemia ? Corrected per protocol repeat labs ordered in a.m. for subsequent eval 6. Hypomagnesemia ? Corrected per protocol repeat labs ordered in a.m. for subsequent monitoring 7. DVT prophylaxis ? Low risk to encourage ambulation Medications at Discharge Home Medications acetaminophen 325 mg tablet 650 mg (2 x 325 mg) PO Q6H PRN PRN Pain 1-10 Or Fever >100.7 #0 tabs 12/20/24 ciprofloxacin HCl 500 mg tablet 500 mg PO BID #24 tabs 12/20/24 pantoprazole 40 mg tablet,delayed release 40 mg PO DAILY #30 tabs 12/20/24 polysaccharide iron complex 150 mg iron capsule (Ferrex) 150 mg PO DAILY #90 caps 12/20/24 potassium chloride 20 mEq tablet,extended release(part/cryst) 20 meq PO BIDCM #30 tabs 12/20/24 potassium, sodium phosphates 280 mg-160 mg-250 mg oral powder packet 1 packet PO BID #30 ea 12/20/24 Hospital Course Summary of Care Provided Minutes Spent on Discharge: 35 Physical Exam Narrative GENERAL: cooperative HEENT: Atraumatic; normocephalic EYES; Anicteric, Normal Conjunctiva NECK; supple, normal thyroid, RESPIRATORY: Diminished to auscultation CARDIOVASCULAR: Regular S1 S2, GI: soft, normoactive bowel sounds, : Renal angle tenderness; EXTREMITIES: No edema, no clubbing, MUSCULOSKELETAL: no muscle wasting NEURO: Awake; no lateralizing signs. SKIN: No Rash PSYCH; Flat affect Medical Records Data Medical Nutrition Assessment Dietitian: Malnutrition Criteria Met Start: 12/18/24 17:28 Freq: Status: Active Protocol: Document 12/18/24 17:30 RMA (Rec: 12/18/24 17:30 RMA [email or web address]) Nutrition Malnutrition Evidence of Yes Malnutrition Exists Malnutrition (severe Acute Illness/Injury ): Evidenced By Suboptimal Energy Intake (Severe),Weight Loss (Severe) Clinical Problem Acute Disease or Injury Related Malnutrition Etiology severe protein-calorie malnutrition in the context of acute illness related to inadequate oral intake and altered GI function; N/V/D Signs/Symptoms as evidenced by ~7% unintentional weight loss x 1 week and PO meeting less than 50% estimated nutrition needs x 1 week Status Active Problem Recommendation Dietitian Will continue regular diet and encourage PO as Recommendations/ tolerated. Changes Will d/c ensure plus HP with medpass. Will order 240mL vanilla ensure plus HP w/ breakfast and dinner tray. Monitor weight and PO as established; adjust ONS as needed. Weight / BMI Weight Weight: 55.6 kg Body Mass Index (BMI) 26.5 ABG / Lab / Microbiology Data 12/20/24 05:24 12/20/24 05:24 Laboratory: Laboratory Results - last 24 hr 12/19/24 10:38: Iron < 6 L, TIBC TNP, Iron Saturation TNP, Unsaturated IBC 171 L, Ferritin 109, Vitamin B12 > 4000 H 12/20/24 05:24: WBC 7.8, RBC 3.35 L, Hgb 10.0 L, Hct 29.5 L, MCV 88.1, MCH 29.9, MCHC 33.9, RDW Std Deviation 53.1 H, RDW Coeff of Jeb 16.3 H, Plt Count 280, MPV 10.6, Immature Gran % (Auto) 0.400, Neut % (Auto) 63.8, Lymph % (Auto) 23.6, [place] % (Auto) 10.3 H, Eos % (Auto) 1.4, Baso % (Auto) 0.5, Absolute Neuts (auto) 5.0, Absolute Lymphs (auto) 1.83, Nucleated RBC % 0, Sodium 142, Potassium 3.2 L, Chloride 108, Carbon Dioxide 23.9, Anion Gap 11, BUN 7, Creatinine 0.55 L, Estim Creat Clear Calc 104.21, Est GFR (MDRD) Non-Af 117, BUN/Creatinine Ratio 13.4, Glucose 109 H, Calcium 9.0 Microbiology: Microbiology 12/18/24 10:40 Urine, Clean Catch Urine Culture - Final Presumptive E. coli 12/18/24 10:40 Mucosa - Nose SARS-CoV-2, Influenza & RSV (PCR) - Final D/C Instructions Discharge Diet: No restrictions Discharge Activity: Return to Normal Activity Call your doctor if you observe: Fever of 101 or Higher, Shortness of breath, Fainting spells and Chest pain DC O2, CPAP, BIPAP Needs Home O2 Discharge instructions: No Meaningful Use Info Meaningful Use Meaningful Use Diagnoses (Choose all that apply): None applicable Ischemic Stroke Statin Dosing Therapy Reference: STATIN DOSE THERAPY REFERENCE: * Patients > 75 years receive moderate or high dose statin therapy. * Patients 75 years or YOUNGER should receive HIGH intensity statin dose unless contraindicated. You will be required to document reason for non-treatment if statin daily dose does not meet guidelines. HIGH DOSE STATIN THERAPY DAILY Atorvastatin > than or = to 40 mg Rosuvastatin > than or = to 20 mg Amlodipine + Atorvastatin > than or = to 2.5/40 mg Ezetimibe + Simvastatin 10/80 mg Simvastatin 80mg Discharge Plan Admission Admit Date/Time: 12/18/24 12:07 Attending Provider: Tod Anderson Primary Care Provider: Che Adkins CERTIFIED REGISTERED NURSE ANESTHETIST Discharge Orders/Prescriptions Prescriptions: New potassium, sodium phosphates 280-160-250 mg Powder In Packet 1 packet PO BID Qty: 30 0RF acetaminophen 325 mg Tablet 650 mg PO Q6H PRN PRN (Reason: Pain 1-10 Or Fever >100.7) Qty: 0 0RF potassium chloride 20 mEq Tablet,Er Particles/Crystals 20 meq PO BIDCM Qty: 30 0RF pantoprazole 40 mg Tablet,Delayed Release (Dr/Ec) 40 mg PO DAILY Qty: 30 0RF ciprofloxacin HCl 500 mg tablet 500 mg PO BID Qty: 24 0RF polysaccharide iron complex [Ferrex 150] 150 mg iron Capsule 150 mg PO DAILY Qty: 90 0RF Referrals / Follow Up: Kvng Pena DO [Med Staff - Active Staff] - Within 2 Weeks Podlogar,Che WORRELL, CERTIFIED REGISTERED NURSE ANESTHETIST-C [Primary Care Provider] - Within 1 Week Disposition Disposition (needs filled in before D/C Order can be placed): Home, Self Care Charges/Coding Visit Charges Inpatient E&M: 38181 Disch Hosp >30min
[2024-12-20 08:22] VITALS: BP 115/74; PULSE 76; RESP 14; TEMP 36.8; O2SAT 100
[2024-12-20] MEDS: Na Biphos/Potassium Phosphate PACKET 1 PACKET PO (08:28)
[2024-12-20] MEDS: Pantoprazole Sodium 40 MG Tablet PO (08:28)
[2024-12-20] MEDS: Potassium Chloride Oral Tablet 20 MEQ 40 MEQ PO (08:29)
[2024-12-20] MEDS: Potassium Chloride Oral Tablet 20 MEQ PO (08:29)
[2024-12-20] MEDS: 0.9% Normal Saline (100mL Bag) 100 ML 15 ML IV (10:03)
[2024-12-20] MEDS: Ceftriaxone 1 GM/50 ML BAG IV (10:05)
[2024-12-20] MEDS: Iron Polysaccharide Complex 150 MG CAPSULE PO (11:16)
[2024-12-20] MEDS: Sodium Ferric Gluconat 250 MG in 0.9% Normal Saline 250 ML 135 MG IV (11:16)
[2024-12-20 13:32] VITALS: BP 115/80; PULSE 100; RESP 14; TEMP 36.7; O2SAT 99
--- NOTE | 2024-12-20 14:19 | PHA.DC.MC.R ---
Pharmacy [facility] Pharmacy Service has performed discharge medication reconciliation and counseling for this patient. The patient's discharge medication list was reviewed for discrepancies and discrepancies were resolved. The patient was counseled on the following discharge medications and changes in medications for homegoing were reviewed. 1. SODIUM/PHOS PACKET 2. K-DUR 3. TYLENOL 4. CIPRO 5. PROTONIX 6. FERREX The Reason for Use, instructions for use, and potential side effects were reviewed for all new medications. The patient's questions regarding all of their medications were answered. The patient was able to verbally demonstrate an understanding of their discharge medications. the patient was counselled by Cheko Blackmon PharmD Candidate Medications at Discharge Home Medications acetaminophen 325 mg tablet 650 mg (2 x 325 mg) PO Q6H PRN PRN Pain 1-10 Or Fever >100.7 #0 tabs 12/20/24 ciprofloxacin HCl 500 mg tablet 500 mg PO BID #24 tabs 12/20/24 pantoprazole 40 mg tablet,delayed release 40 mg PO DAILY #30 tabs 12/20/24 polysaccharide iron complex 150 mg iron capsule (Ferrex) 150 mg PO DAILY #90 caps 12/20/24 potassium chloride 20 mEq tablet,extended release(part/cryst) 20 meq PO BIDCM #30 tabs 12/20/24 potassium, sodium phosphates 280 mg-160 mg-250 mg oral powder packet 1 packet PO BID #30 ea 12/20/24
[2025-01-24 16:02] LABS: Pathologist Review Reviewed
== END 2024-12-20 14:00 | disposition home or self-care (01) | DRG 720 ==
LOC: ED 12:35 → MS2 18:23 → MS3 12-20 07:34 → MS2 03-01 11:01
PROVIDERS: Nurse Practitioner; Admitting Provider Internal Medicine; Emergency Provider Emergency Medicine; PCP Nurse Practitioner Primary Care; Visit Provider Internal Medicine
DX: A41.51 Sepsis due to Escherichia coli [E. coli] (principal); E43 Unspecified severe protein-calorie malnutrition; D50.9 Iron deficiency anemia, unspecified; E87.6 Hypokalemia; E83.42 Hypomagnesemia; N10 Acute pyelonephritis; N83.202 Unspecified ovarian cyst, left side; Z68.25 Body mass index [BMI] 25.0-25.9, adult; Z79.899 Other long term (current) drug therapy; Z87.442 Personal history of urinary calculi; D63.8 Anemia in other chronic diseases classified elsewhere; K52.9 Noninfective gastroenteritis and colitis, unspecified
CPT/HCPCS: J2916; 36415; 74176; 80048; 80076; 81001; 82607; 82728; 83540; 83550; 83605; 83690; 83735; 84100; 84703; 85025; 87086; 87088; 87186; 87631; 94668; 96361; 96365; 96366; 96367; 96374; 96375; 96376; 97802; 99221; 99283; 99284; A4216; G0378; J2405